=== PATIENT | female | born 2000 | race Caucasian/White ===

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

== ENCOUNTER → 2023-07-21 | Outpatient (CLI) | payer BC ==
[2023-07-22 02:26] LABS: Basophils # (A) 0.03 X 10*3/uL (0.00-0.10); Basophils % (A) 0.5 %; Eosinophils # (A) 0.09 X 10*3/uL (0.04-0.35); Eosinophils % (A) 1.4 %; HGB 13.6 g/dL (12.0-15.0); Lymphocytes % (A) 37.6 %; MCH 29.8 pg (27.0-32.0); MCV 87.7 FL (80.0-97.0); Mean Platelet Volume 9.6 FL (9.5-12.2); Monocytes # (A) 0.37 X 10*3/uL (0.20-1.00); Monocytes % (A) 5.6 %; NRBC Per 100 WBC 0 X 10*3/uL (0.00-0.01); Neutrophils # (A) 3.65 X 10*3/uL (1.80-7.70); Neutrophils % (A) 54.7 %; Platelet Count 320 X 10*3/uL (140-440); RBC 4.56 X 10*6/uL (4.10-5.20); RDW 12.2 % (11.5-14.5); WBC 6.65 X 10*3/uL (4.50-10.00)
[2023-07-22 03:03] LABS: ALT 12 U/L (8-44); AST 17 U/L (13-35); Albumin 4.5 g/dL (3.8-4.9); Albumin/Globulin Ratio 1.55 Ratio (1.60-3.17); Alkaline Phosphatase 48 U/L (41-126); BUN/Creat Ratio 18.67 Ratio (12.00-20.00); Blood Urea Nitrogen 11.2 mg/dL (9.0-27.0); Calcium 9.6 mg/dL (8.7-10.3); Carbon Dioxide 23.8 mmol/L (21.6-31.8); Chloride 102 mmol/L (96-109); Globulin 2.9 g/dL (1.6-3.3); Glucose 94 mg/dL (70-110); Potassium 4.1 mmol/L (3.5-5.5); Sodium 138 mmol/L (135-145); Total Bilirubin 0.2 mg/dL (0.3-1.2); Total Protein 7.4 g/dL (6.2-8.2)
[2023-07-22 04:45] LABS: Gliadin AB IgA, Deaminated Negative (Negative); Gliadin AB IgA, Unit <0.5 U/mL; Gliadin AB IgG, Deaminated Negative (Negative); Gliadin AB IgG, Unit <0.4 U/mL
== END | disposition home or self-care (01) ==
LOC: LABWHC1 16:29
PROVIDERS: ATTEND Internal Medicine Gastroenterology
DX: R11.2 Nausea with vomiting, unspecified (principal)
CPT/HCPCS: 36415; 80053; 83516; 85025